=== PATIENT | male | born 1965 ===

== ENCOUNTER 2018-09-18 11:47 | Emergency (ER) | payer MEDICAID, OTHER ==
[2018-09-18 11:48] VITALS: BMI 33.4
[2018-09-18 11:58] VITALS: BP 148/89; PULSE 95; RESP 18; TEMP 98.9; O2SAT 98
--- NOTE | 2018-09-18 13:11 | C.PDOC ---
History Of Present Illness 53 year old male, whose past medical history includes seizures, presents to the ED requesting a refill of seizure medication. Patient takes phenobarbital 100mg BID and divalproex 500mg BID. Patient states he feels well and has no complaints at this time. Patient denies fever, chills, or any seizure episodes today. Time Seen by Provider: 09/18/18 12:25 Chief Complaint (Nursing): Med Refill History Per: Patient History/Exam Limitations: no limitations Onset/Duration Of Symptoms: Hrs Current Symptoms Are (Timing): Still Present Additional History Per: Patient Past Medical History Reviewed: Historical Data, Nursing Documentation, Vital Signs Vital Signs: Last Vital Signs Temp 98.9 F 09/18/18 11:52 Pulse 95 H 09/18/18 11:52 Resp 18 09/18/18 11:52 BP 148/89 09/18/18 11:52 Pulse Ox 98 09/18/18 11:52 - Medical History PMH: HTN, Seizures Surgical History: No Surg Hx Family History: States: Hypertension - Social History Hx Alcohol Use: No Hx Substance Use: No - Immunization History Hx Tetanus Toxoid Vaccination: Yes Hx Influenza Vaccination: Yes Hx Pneumococcal Vaccination: Yes Review Of Systems Constitutional: Negative for: Fever, Chills ENT: Negative for: Ear Pain, Ear Discharge Respiratory: Negative for: Cough Gastrointestinal: Negative for: Nausea, Vomiting, Abdominal Pain Genitourinary: Negative for: Dysuria, Frequency Musculoskeletal: Negative for: Neck Pain Skin: Negative for: Rash Neurological: Negative for: Weakness, Numbness, Confusion Physical Exam - Physical Exam Appears: Non-toxic, No Acute Distress Skin: Normal Color, Warm, Dry, No Rash Head: Atraumatic, Normacephalic Eye(s): bilateral: Normal Inspection Oral Mucosa: Moist Neck: Supple Extremity: Normal ROM Neurological/Psych: Oriented x3, Normal Speech, Normal Cognition ED Course And Treatment O2 Sat by Pulse Oximetry: 98 (on RA) Pulse Ox Interpretation: Normal Disposition - Disposition Referrals: [facility] [Outside] Disposition: HOME/ ROUTINE Disposition Time: 13:11 Condition: STABLE Additional Instructions: Follow up with the medical doctor within 1-2 days without fail. return if worsened. Prescriptions: Divalproex [Depakote DR(*BID*)] 500 mg PO BID #60 ect Phenobarbital 100 mg PO BID #100 tab Instructions: Seizures, Adult (DC) Forms: [email or web address] (Croatian) - Clinical Impression Clinical Impression: Medication refill, History of seizure - PA / MEDIA ASSOCIATE / Resident Statement MD/DO has reviewed & agrees with the documentation as recorded. - Scribe Statement The provider has reviewed the documentation as recorded by the Scribe (Afsaneh Michelle) All medical record entries made by the Scribe were at my direction and personally dictated by me. I have reviewed the chart and agree that the record accurately reflects my personal performance of the history, physical exam, medical decision making, and the department course for this patient. I have also personally directed, reviewed, and agree with the discharge instructions and disposition.
== END 2018-09-18 13:18 | disposition home or self-care (01) ==
LOC: C.ER 11:47
DX: Z76.0 Encounter for issue of repeat prescription (principal); R56.9 Unspecified convulsions

== ENCOUNTER 2018-11-13 13:04 | Emergency (ER) | payer OTHER ==
[2018-11-13 13:04] VITALS: BMI 33.4
[2018-11-13 13:13] VITALS: BP 147/81; PULSE 93; RESP 18; TEMP 98; O2SAT 96
--- NOTE | 2018-11-13 13:54 | C.PDOC ---
History Of Present Illness Patient presents requesting refills of his antiepileptics. Has empty pill bottles- 500mg divalproex BID, 100mg phenobarbital BID. Reports no symptoms, has not had any seizure today. Time Seen by Provider: 11/13/18 13:20 Chief Complaint (Nursing): Med Refill Past Medical History Reviewed: Historical Data, Nursing Documentation, Vital Signs Vital Signs: Last Vital Signs Temp 98 F 11/13/18 13:11 Pulse 93 H 11/13/18 13:11 Resp 18 11/13/18 13:11 BP 147/81 11/13/18 13:11 Pulse Ox 96 11/13/18 13:11 - Medical History PMH: HTN, Seizures Family History: States: Unknown Family Hx, Hypertension - Social History Hx Alcohol Use: No Hx Substance Use: No - Immunization History Hx Tetanus Toxoid Vaccination: Yes Hx Influenza Vaccination: Yes Hx Pneumococcal Vaccination: Yes Review Of Systems Except As Marked, All Systems Reviewed And Found Negative. Constitutional: Negative for: Fever Respiratory: Negative for: Cough, Shortness of Breath Gastrointestinal: Negative for: Nausea, Vomiting, Abdominal Pain, Diarrhea Skin: Negative for: Rash Neurological: Negative for: Seizures Physical Exam - Physical Exam Appears: Well, Non-toxic, No Acute Distress Skin: Normal Color, Warm, Dry Head: Atraumatic Eye(s): bilateral: Normal Inspection Oral Mucosa: Moist Chest: Symmetrical Cardiovascular: Rhythm Regular Respiratory: Normal Breath Sounds Gastrointestinal/Abdominal: Normal Exam Extremity: Normal ROM Neurological/Psych: Oriented x3, Normal Speech Gait: Steady ED Course And Treatment O2 Sat by Pulse Oximetry: 96 Medical Decision Making Medical Decision Making: Patient has been here multiple times for med refills, has not been back to PMD or neurologist. Explained that patient cannot come to the ED every time he needs a medication refill. Will give Rx for one week of medications at this time. Disposition - Disposition Disposition: HOME/ ROUTINE Disposition Time: 13:50 Condition: GOOD Additional Instructions: KAIT JAFFE, thank you for letting us take care of you today. Your provider was Yola Stockton MD and you were treated for MED REFILL. The emergency medical care you received today was directed at your acute symptoms. If you were prescribed any medication, please fill it and take as directed. It may take several days for your symptoms to resolve. Return to the Emergency Department if your symptoms worsen, do not improve, or if you have any other problems. Please contact your doctor or call one of the physicians/clinics you have been referred to that are listed on the Patient Visit Information form that is included in your discharge packet. Bring any paperwork you were given at discharge with you along with any medications you are taking to your follow up visit. Our treatment cannot replace ongoing medical care by a primary care provider outside of the emergency department. Thank you for allowing the [facility] team to be part of your care today. If you had an X-Ray or CT scan: A Radiologist will review the ED reading if any change in treatment is needed we will contact you. If you had a blood, urine, or wound culture: It will take several days for the results, if any change in treatment is needed we will contact you. If you had an STI test: It will take 48 hours for the results. Please call after 1 week if you have not heard back. Please follow up with your primary care physician or neurologist for further refills of your seizure medication. Prescriptions: Divalproex Sodium 500 mg PO BID #14 tablet. PHENobarbital [PHENobarbital Tab] 100 mg PO BID #14 tab Instructions: Seizures, Adult (DC) Forms: [employer] (Greenlandic) - Clinical Impression Clinical Impression: History of seizure, Medication refill
== END 2018-11-13 14:06 | disposition home or self-care (01) ==
LOC: C.ER 13:04
DX: Z76.0 Encounter for issue of repeat prescription (principal); R56.9 Unspecified convulsions